=== PATIENT | female | born 1965 | race Caucasian/White ===

== ENCOUNTER 2019-08-17 07:18 | Inpatient (IN) | payer BC ==
[~2019-08-17 07:18] MED LIST: Buffered Lidocaine 1% SYRIN* 1 ML/SYRINGE INTRADERM ONE; Famotidine IV* 10 MG/ML 2 ML (20 mg) IV ONE; Lactated Ringers 1000 ML Bag* 1,000 ML IV SCH; Levalbuterol 0.63MG/3ML NEB* UNIT OF USE INH ONE
[2019-08-17] MEDS ORDERED: Famotidine IV* 10 MG/ML 2 ML (20 mg) ONE (08:07)
[2019-08-17] MEDS ORDERED: Heparin VIAL(*) 5000 UNITS/ML VIAL (FIVE THOUSAND) ONE (08:07)
[2019-08-17] MEDS ORDERED: Levalbuterol 0.63MG/3ML NEB* UNIT OF USE INH ONE (08:07)
[2019-08-17] MEDS ORDERED: Clindamycin 900 MG/D5W BAG(*) 900 MG/50 ML BAG IVPB ONE (08:07)
[2019-08-17] MEDS ORDERED: Ondansetron INJ* 2 MG/ML VIAL ONE ×2 (08:36→12:27)
[2019-08-17] MEDS ORDERED: Ketorolac INJ* 30 MG/ML 1 ML VIAL ONE (08:36)
[2019-08-17] MEDS ORDERED: fentaNYL* 50 MCG/ML 5 ML VIAL (250 MCG VIAL) ONE (08:36)
[2019-08-17] MEDS ORDERED: Propofol* 10 MG/ML 20 ML BTL ONE (08:36)
[2019-08-17] MEDS ORDERED: Rocuronium* 10 MG/ML VIAL ONE (08:36)
[2019-08-17] MEDS ORDERED: Dexamethasone IV* 4 MG/ML 1 ML (4 MG) ONE (08:36)
[2019-08-17] MEDS ORDERED: Midazolam* 1 MG/ML 5 ML VIAL (5 MG) ONE (08:36)
[2019-08-17] MEDS ORDERED: Lidocaine 2% PF * 5 ML VIAL ONE (08:36)
[2019-08-17] MEDS ORDERED: KETAMINE HCL* 50 MG/ML 10 ML VIAL ONE (08:36)
[2019-08-17] MEDS ORDERED: Bupivacaine 0.25% EPI 200,000* 30 ML SDV ONE (10:17)
[2019-08-17] MEDS ORDERED: Phenylephrine 40 MCG/ML SYRINGE ONE (11:22)
[2019-08-17] MEDS ORDERED: Ondansetron INJ* 2 MG/ML VIAL IV PRN (11:31)
[2019-08-17] MEDS ORDERED: Levalbuterol 0.63MG/3ML NEB* UNIT OF USE INH PRN (11:31)
[2019-08-17] MEDS ORDERED: Naloxone* 0.4 MG/ML 1 ML VIAL IV PRN (11:31)
[2019-08-17] MEDS ORDERED: Scopolamine 1.5 mg* PATCH TRANSDERM PRN (11:31)
[2019-08-17] MEDS ORDERED: Neostigmine Methylsulfate* 1 MG/ML 10 ML VIAL (1 mg/ml) ONE (11:50)
[2019-08-17] MEDS ORDERED: Glycopyrrolate IV* 0.2 MG/ML 1 ML VIAL ONE (11:50)
[2019-08-17] MEDS ORDERED: Labetalol IV* 5 MG/ML 20 ML VIAL ONE (11:58)
[2019-08-17] MEDS ORDERED: HYDROcodone/ACET. 7.5/325 LIQ* 15 ML UDC PO PRN (12:13)
[2019-08-17] MEDS ORDERED: HYDROmorphone INJ1* 1 MG/ML SYRINGE IV SLOW PU PRN (12:13)
[2019-08-17] MEDS ORDERED: HYDROmorphone INJ* 0.5 MG/0.5 ML SYRINGE IV SLOW PU PRN (12:13)
[2019-08-17] MEDS ORDERED: Acetaminophen ADULT LIQ* 650 MG/20.3 ML UDC PO PRN (12:13)
--- NOTE | 2019-08-17 12:13 | BRIEFOPN ---
Brief Operative/Procedure Note - Operation Details Pre-Op Diagnosis: morbid obesity Post-Op Diagnosis: same Procedures: laparoscopic sleeve gastrectomy Surgeon(s)/Proceduralists: Deann. Assist: BOO Amaro Anesthesia: GET. Fluids: 2 liters RL Estimated Blood Loss: < 10 ml Findings: as above Specimen(s)/Culture(s) Description: portion of stomach Complications: none
[2019-08-17] MEDS ORDERED: Albuterol 2.5 MG/3 ML NEB.SOL* (0.083%) INH PRN (12:17)
[2019-08-17] MEDS ORDERED: fentaNYL* 50 MCG/ML 2 ML VIAL (100 MCG VIAL) ONE (12:27)
[2019-08-17] MEDS: fentaNYL* 50 MCG/ML 2 ML VIAL (100 MCG VIAL) IV PRN ×2 (12:30→13:05)
[2019-08-17] MEDS ORDERED: Ketorolac INJ* 30 MG/ML 1 ML VIAL IV SCH (13:00)
[2019-08-17] MEDS ORDERED: hydrALAZINE IV* 20 MG/ML VIAL ONE (13:17)
[2019-08-17] MEDS ORDERED: Scopolamine 1.5 mg* PATCH ONE (14:02)
[2019-08-17] MEDS: Lactated Ringers 1000 ML Bag* 1,000 ML IV SCH ×2 (14:22→22:28)
[2019-08-17] MEDS ORDERED: HYDROmorphone INJ* 0.5 MG/0.5 ML SYRINGE ONE (14:50)
[2019-08-17] MEDS: Ketorolac INJ* 30 MG/ML 1 ML VIAL IV SCH (17:41)
[2019-08-17] MEDS: Fluticasone NASAL SPRAY 50MCG* 16 gm SPRAY BTL BOTH NARES SCH (20:53)
[2019-08-17] MEDS: Famotidine IV* 10 MG/ML 2 ML (20 mg) IV SLOW PU SCH (20:53)
[2019-08-17] MEDS: Mometasone/Formoter 200/5 MDI INH SCH (21:08)
[2019-08-17] MEDS: Heparin VIAL(*) 5000 UNITS/ML VIAL (FIVE THOUSAND) SUBCUT SCH (22:12)
--- NOTE | 2019-08-17 22:42 | OP ---
CC: [facility]; BOO Benson * DATE OF OPERATION: 08/17/19 - ROOM #353 DATE OF : 67 SURGEON: Carlos Zacarias MD SAMPLE CHECKER: BOO Morales ANESTHESIOLOGIST: Horace Turner MD ANESTHESIA: General endotracheal. PRE-OP DIAGNOSIS: Clinically severe obesity. POST-OP DIAGNOSIS: Clinically severe obesity. OPERATIVE PROCEDURE: Laparoscopic sleeve gastrectomy. ESTIMATED BLOOD LOSS: Minimal. IV FLUIDS: Crystalloid. SPECIMEN: Portion of stomach. DRAINS: None. COMPLICATIONS: None. COUNTS: Instrument, needle, and sponge count correct. DESCRIPTION OF PROCEDURE: The patient was brought to the operating room and placed on the table supine. Sequential compression devices were placed on both lower extremities. General anesthesia was administered. She was positioned and padded appropriately, prepped and draped in the usual sterile fashion and a time-out was performed. Local anesthetic was infiltrated into the skin and soft tissue prior to making each incision. Entry to the abdomen is through the left upper quadrant accommodating a 5 mm optical trocar. After accessing the peritoneal cavity, carbon dioxide was insufflated to a pressure of 15 mmHg. Under direct visualization, 12 mm bladeless trocars were placed supraumbilically in the midline and right upper quadrant and another 5-mm trocar placed in the left upper quadrant laterally. A Virgilio liver retractor was placed percutaneously in the subxiphoid position and used to elevate the left lobe of the liver. Gastric anatomy appeared normal. No evidence of hiatal hernia. Greater curvature of the stomach was skeletonized with LigaSure starting 6 cm proximal from the pylorus. Mobilization of the stomach was completed, dividing posterior adhesions as well as the short gastric posteriorly near the cardia. After completing the mobilization, a sleeve gastrectomy was performed using the EndoGIA stapler with reinforced purple cartridges. This was done using a 40- Romanian bougie. After completing the gastrectomy, the specimen was retrieved using endoscopic retrieval bag through the right upper quadrant. Hemostasis was assured. The bougie was removed under direct visualization. Virgilio liver retractor was removed. Carbon dioxide and ports were removed. The incisions were closed with 4- 0 Monocryl in subcuticular fashion and DermaFlex was applied. The patient tolerated the procedure well, was extubated and transferred to Recovery stable. [id number]/[facility] #: [id number] MIKAYLA
[2019-08-18] MEDS: Ketorolac INJ* 30 MG/ML 1 ML VIAL IV SCH ×5 (00:49→23:58)
[2019-08-18] MEDS: Ondansetron INJ* 2 MG/ML VIAL IV PRN ×2 (01:11→10:57)
[2019-08-18] MEDS: Lactated Ringers 1000 ML Bag* 1,000 ML IV SCH (05:16)
[2019-08-18] MEDS: Heparin VIAL(*) 5000 UNITS/ML VIAL (FIVE THOUSAND) SUBCUT SCH ×3 (06:18→21:32)
[2019-08-18] MEDS: Famotidine IV* 10 MG/ML 2 ML (20 mg) IV SLOW PU SCH ×2 (08:31→21:31)
[2019-08-18] MEDS: Fluticasone NASAL SPRAY 50MCG* 16 gm SPRAY BTL BOTH NARES SCH ×2 (08:31→21:31)
[2019-08-18] MEDS ORDERED: Cetirizine* 10 MG TAB PO PRN (09:49)
--- NOTE | 2019-08-18 09:52 | PN ---
Progress Note - Progress Note Date of Service: 08/18/19 SOAP: Subjective: Slept poorly as usually works nights. Denies N/V/GERD. Some incisional pain but not severe. Objective: Vital Signs Temp 99.2 F 08/18/19 07:57 Pulse 56 08/18/19 07:57 Resp 17 08/18/19 08:44 BP 157/61 08/18/19 07:57 Pulse Ox 99 08/18/19 08:44 Gen: NAD Abd: incisions c/d/i; no erythema; soft and min tender. Intake & Output 08/17/19 08/18/19 08/18/19 18:59 06:59 18:59 Intake Total 1999 Output Total 509 148 5632 Balance 1100 1565 -978 Weight 244 lb Intake: IV Fluids 1999 LR 1999 1939 322 Oral 0 Output: Urine 147 827 3317 Assessment: POD#1 s/p LSG. Doing well. Plan: Adv diet. PO meds. Ambulate. Likely home in AM.
[2019-08-18] MEDS ORDERED: PROCHLORPERAZINE INJ 5 MG/ML 2 ML VIAL ONE (12:20)
[2019-08-18] MEDS: PROCHLORPERAZINE INJ 5 MG/ML 2 ML VIAL IV PRN ×2 (12:23→17:24)
[2019-08-18] MEDS: Mometasone/Formoter 200/5 MDI INH SCH ×2 (12:28→21:37)
[2019-08-18] MEDS ORDERED: Saline NASAL SPRAY 0.65%* BTL BOTH NARES PRN (12:31)
[2019-08-18] MEDS: D5W 1/2 NS KCl 20 Meq 1000 ML* 1,000 ML IV SCH ×2 (12:33→21:39)
[2019-08-18] MEDS ORDERED: amLODIPine TAB* 5 MG PO ONE (13:30)
[2019-08-18] MEDS ORDERED: hydrALAZINE IV* 20 MG/ML VIAL IV SLOW PU PRN (13:30)
[2019-08-18] MEDS: Oxymetazoline 0.05% NASAL SPR* 15 ML BTL BOTH NARES PRN ×2 (13:52→17:17)
[2019-08-18 14:49] LABS: Hematocrit 38 % (35-47); Hemoglobin 13.3 g/dL (12.0-16.0)
--- NOTE | 2019-08-18 19:35 | CONS ---
CC: EDELMIRA Benson; Dr. Carlos Zacarias * CONSULTATION REPORT: DATE OF ADMISSION: 08/17/19 DATE OF CONSULT: 08/18/19 PRIMARY CARE PROVIDER: EDELMIRA Benson. PHYSICIAN REQUESTING CONSULT: Dr. Carlos Zacarias. REASON FOR CONSULT: Hypertension. CHIEF COMPLAINT: Slight nausea. HISTORY OF PRESENT ILLNESS: Nguyen Velasquez is a 53-year-old female who is status post laparoscopic sleeve gastrectomy performed by Dr. Zacarias on 08/17/19. Postoperatively, the patient was noted to have pressures in the 180s. She also stated that all morning she was intermittently nauseated. She has not had a bowel movement yet, but she has had flatulence. Her postoperative pain is controlled. The patient stated that she has history of high blood pressure when she was , but not recently. PAST MEDICAL HISTORY: 1. History of moderate intermittent asthma. 2. Hypothyroidism. 3. Hypertension, not treated. 4. History of mild obstructive sleep apnea. The patient was advised to sleep on her side. PAST SURGICAL HISTORY: for 3 children. MEDICATIONS: At home include: 1. Acetaminophen on a p.r.n. basis. 2. Breo Ellipta 1 puff daily. 3. Albuterol inhaler on a p.r.n. basis. 4. Xyzal 5 mg daily. 5. Guaifenesin on a p.r.n. basis. 6. Nasonex nasal spray 1 spray to both nostrils b.i.d. 7. Claritin 10 mg daily p.r.n. 8. Levothyroxine 25 mcg daily. 9. Albuterol nebulizer on a p.r.n. basis. ALLERGIES: SULFA causes rash. PENICILLIN causes rash. FAMILY HISTORY: Mother with history of uterine cancer. Sister with breast cancer. High blood pressure in mother and sister. Coronary artery disease in mother and brother. SOCIAL HISTORY: The patient works the nights at a hotel. She is . Denies any alcohol or drug use and never smoked tobacco. Her is her surrogate. PHYSICAL EXAM: Blood pressure of 157/74, heart rate of 78 and regular, respiratory rate 17, oxygen saturation 97% on room air, and temperature 98.1. General: The patient is a very pleasant 53-year-old female with a BMI of 46. The patient is in no acute distress. Alert, awake, and oriented x3. HEENT: Head: Atraumatic, normocephalic. Eyes: Pupils are equal and reactive to light and accommodation. Oropharynx is clear. Mucosa moist. Neck: Supple. No JVD. No bruits bilaterally. Cardiovascular: Regular rate and rhythm. No murmur. Respiratory: Clear to auscultation bilaterally. Abdomen: Soft, minimally diffusely tender with no rebound and no guarding. Bowel sounds are present in all 4 quadrants. Postsurgical incisions have no dehiscence and no drainage and no evidence of infection. Extremities: There is trace bilateral pedal edema. Pulses are +2 bilaterally. No clubbing or cyanosis. Neuro Evaluation: Speech clear. Cranial nerves II through XII are grossly intact. Motor strength is 5/5 bilaterally. DIAGNOSTIC STUDIES/LAB DATA: Laboratory data today included hemoglobin of 13.3 , hematocrit of 38. ASSESSMENT AND PLAN: Postoperative hypertension. At this point, the patient has history of hypertension, but has never been really treated. She stated it usually occurs when she is stressed and also during . At this point, the patient was placed on 5 mg of amlodipine daily. She was also placed on hydralazine on a p.r.n. basis. I suspect that with time when she is not nauseated and her postoperative pain is well controlled, her blood pressure will normalize. For the time being, recommend continuation of amlodipine 5 mg daily. I will check with the patient in the morning tomorrow in regards to blood pressure control further. Thank you very much for allowing our service to see your patient in consultation. We will see the patient tomorrow. TIME SPENT: Approximately 62 minutes were spent on this patient's consultation ; more than half that time was spent [id number] with the patient during the interview and physical exam. [id number]/[facility] #: [id number] MIKAYLA
[2019-08-18] MEDS: Levothyroxine TAB* 25 MCG TAB PO SCH (21:35)
[2019-08-19] MEDS: Ketorolac INJ* 30 MG/ML 1 ML VIAL IV SCH (05:59)
[2019-08-19] MEDS: D5W 1/2 NS KCl 20 Meq 1000 ML* 1,000 ML IV SCH ×2 (05:59→14:55)
[2019-08-19] MEDS: Heparin VIAL(*) 5000 UNITS/ML VIAL (FIVE THOUSAND) SUBCUT SCH ×3 (06:00→23:17)
--- NOTE | 2019-08-19 08:29 | PN ---
Progress Note - Progress Note Date of Service: 08/19/19 SOAP: Subjective: Reports feeling better. No N/V. Has nasal congestion and requesting Mucinex in liquid form that she takes at home. Objective: Vital Signs Temp 99.5 F 08/19/19 07:53 Pulse 68 08/19/19 07:53 Resp 16 08/19/19 07:53 BP 157/82 08/19/19 07:53 Pulse Ox 96 08/19/19 07:53 Gen: NAD ABd: incisions c/d/i; no erythema; min tender. Intake & Output 08/18/19 08/19/19 08/19/19 18:59 06:59 18:59 Intake Total 1284 75 Output Total 3500 2150 Balance -2215 Intake: IV Fluids 1284 LR 1284 Oral 75 Output: Urine 3500 2150 Other: # Bowel Movements 0 Laboratory Results - last 24 hr 08/18/19 14:31 Hgb 13.3 Hct 38 Assessment: POD#2 s/p LSG. Poor po intake. Otherwise well. Plan: Cont diet. Robitussin prn. Likely home tomorrow given poor po intake.
[2019-08-19] MEDS: Famotidine IV* 10 MG/ML 2 ML (20 mg) IV SLOW PU SCH ×2 (08:46→23:18)
[2019-08-19] MEDS: amLODIPine TAB* 5 MG PO SCH (08:46)
[2019-08-19] MEDS: guaiFENesin 100 mg/5 ml LIQ unit dose cup PO PRN ×4 (08:46→23:18)
[2019-08-19] MEDS: Fluticasone NASAL SPRAY 50MCG* 16 gm SPRAY BTL BOTH NARES SCH ×2 (09:46→23:17)
[2019-08-19] MEDS: Mometasone/Formoter 200/5 MDI INH SCH ×2 (09:46→23:16)
[2019-08-19 09:50] LABS: Calcium 9.5 mg/dL (8.6-10.3); EGFR African American 98.2 (>60); EGFR Non-African American 81.1 (>60); Magnesium 2.1 mg/dL (1.9-2.7); Potassium 4.2 mmol/L (3.5-5.0)
--- NOTE | 2019-08-19 16:32 | PN ---
Subjective Date of Service: 08/19/19 Interval History: Pt feels like she has problems drinking enough recommended liquids. Took a shower and was "wiped out", also had a 100 degrees temp this AM. Objective Active Medications: Acetaminophen (Tylenol Adult Liq*) 650 mg PO Q6H PRN PRN Reason: Temp > 101 F Or Mild Pain Hydrocodone Bitart/Acetaminophen (Nortab 7.5/325 Liq*) 15 ml PO Q6H PRN PRN Reason: moderate pain Albuterol (Ventolin 2.5 Mg/3 Ml Neb.Diana*) 2.5 mg INH Q6H PRN PRN Reason: SOB/WHEEZING Albuterol (Ventolin Hfa Inhaler*) 1 puff INH Q4H PRN PRN Reason: SOB/WHEEZING Amlodipine Besylate (Norvasc Tab*) 5 mg PO DAILY [facility] Last Admin: 08/19/19 08:46 Dose: 5 mg Cetirizine HCl (Zyrtec*) 10 mg PO DAILY PRN PRN Reason: Allergy Symptoms Famotidine (Pepcid Iv*) 20 mg IV SLOW PU BID [facility] Last Admin: 08/19/19 08:46 Dose: 20 mg Fluticasone Propionate (Flonase Nasal [place] 50mcg*) 1 spray BOTH NARES BID [facility] Last Admin: 08/19/19 09:46 Dose: 1 spray Guaifenesin (Robitussin 100 Mg/5ml Liq) 10 ml PO Q4H PRN PRN Reason: CONGESTION Last Admin: 08/19/19 14:15 Dose: 10 ml Heparin Sodium (Porcine) (Heparin Vial(*)) 5,000 units SUBCUT Q8HR [facility] Last Admin: 08/19/19 14:15 Dose: 5,000 units Hydralazine HCl (Apresoline Iv*) 5 mg IV SLOW PU Q6H PRN PRN Reason: BLOOD PRESSURE Hydromorphone HCl (Dilaudid Inj*) 0.5 mg IV SLOW PU Q3H PRN PRN Reason: moderately severe pain Hydromorphone HCl (Dilaudid Inj1s*) 1 mg IV SLOW PU Q3H PRN PRN Reason: more severe pain Potassium Chloride/Dextrose (D5w 1/2 Ns Kcl 20 Meq 1000 Ml*) 1,000 mls @ 125 mls/hr IV PER RATE [facility] Last Admin: 12/12/19 14:55 Dose: 125 mls/hr Levothyroxine Sodium (Synthroid Tab*) 25 mcg PO 2130 [facility] Last Admin: 08/18/19 21:35 Dose: 25 mcg Mometasone Furoate/Formoterol Fumar (Dulera 200/5 Mdi*) 2 puff INH BID [facility] Last Admin: 08/19/19 09:46 Dose: 2 puff Ondansetron HCl (Zofran Inj*) 4 mg IV Q6H PRN PRN Reason: NAUSEA/VOMITING Last Admin: 08/18/19 10:57 Dose: 4 mg Oxymetazoline HCl (Afrin 0.05% Nasal [place]*) 2 spray BOTH NARES BID PRN PRN Reason: nasal congestion Last Admin: 08/18/19 17:17 Dose: 2 spray Pharmacy Profile Note (Scopolamine Patch Remove*) 1 note PATCH OFF Q72H ONE Stop: 08/20/19 11:33 Prochlorperazine Edisylate (Compazine Inj*) 10 mg IV Q6H PRN PRN Reason: NAUSEA/VOMITING Last Admin: 08/18/19 17:24 Dose: 10 mg Sodium Chloride (Sodium Chloride 0.65% Nasal [place]*) 1 spray BOTH NARES Q4H PRN PRN Reason: dryness or congestion Vital Signs - 8 hr 08/19/19 08/19/19 11:22 15:29 Temperature 99.1 F 98.8 F Pulse Rate 63 73 Respiratory 12 16 Rate Blood Pressure 152/72 146/70 (mmHg) O2 Sat by Pulse 100 96 Oximetry Oxygen Devices in Use Now: None Appearance: 53 yo F in nAD, AAOx3 Eyes: No Scleral Icterus, PERRLA Ears/Nose/Mouth/Throat: NL Teeth, Lips, Gums, Mucous Membranes Moist Neck: NL Appearance and Movements; NL JVP, Trachea Midline Respiratory: Symmetrical Chest Expansion and Respiratory Effort, Clear to Auscultation Cardiovascular: NL Sounds; No Murmurs; No JVD, RRR Abdominal: - - distended, mild diffuse tenderness, no rebound, no guarding, BS+ , incision sites with no dehiscence, smal serge of erythema surrounding each incision-poss reaction to surgical glue Extremities: - - left arm with edema (IV infiltrated today) Skin: No Nodules or Sclerosis Neurological: Alert and Oriented x 3, NL Muscle Strength and Tone Result Diagrams: 08/18/19 14:31 08/19/19 09:27 Assess/Plan/Problems-Billing Assessment: 53 yo F with h/o obesity, CARLOS ALBERTO s/p laparoscopic gastric sleeve with HTN - Patient Problems (1) HTN (hypertension) Comment: h/o HTN in , but on no meds preop. Suspect essential HTN -cont Norvasc started 08/18/19 (2) DVT prophylaxis Comment: ambulation Status and Disposition: medicine consult, will follow
[2019-08-19] MEDS ORDERED: Ondansetron ODT TAB* 4 MG ONE (17:17)
[2019-08-19] MEDS: Ondansetron ODT TAB* 4 MG SL PRN (17:19)
[2019-08-19] MEDS: Levothyroxine TAB* 25 MCG TAB PO SCH (23:18)
[2019-08-19] MEDS: Albuterol HFA INHALER* 8 gm MDI INH PRN (23:27)
[2019-08-20] MEDS: Ondansetron ODT TAB* 4 MG SL PRN (02:03)
[2019-08-20] MEDS: D5W 1/2 NS KCl 20 Meq 1000 ML* 1,000 ML IV SCH ×2 (03:19→12:05)
[2019-08-20] MEDS: guaiFENesin 100 mg/5 ml LIQ unit dose cup PO PRN ×2 (05:06→12:09)
[2019-08-20] MEDS: Heparin VIAL(*) 5000 UNITS/ML VIAL (FIVE THOUSAND) SUBCUT SCH ×2 (06:15→15:10)
[2019-08-20] MEDS: amLODIPine TAB* 5 MG PO SCH (08:07)
[2019-08-20] MEDS: Famotidine IV* 10 MG/ML 2 ML (20 mg) IV SLOW PU SCH (08:07)
[2019-08-20] MEDS: Ondansetron INJ* 2 MG/ML VIAL IV PRN (08:07)
[2019-08-20] MEDS: Fluticasone NASAL SPRAY 50MCG* 16 gm SPRAY BTL BOTH NARES SCH (08:13)
[2019-08-20] MEDS: Mometasone/Formoter 200/5 MDI INH SCH (08:13)
[2019-08-20] MEDS: Albuterol HFA INHALER* 8 gm MDI INH PRN (08:15)
--- NOTE | 2019-08-20 10:28 | PN ---
Progress Note - Progress Note Date of Service: 08/20/19 Note: S: POD #3. Doing a bit better, though still c/o sig postnasal drip. Not much pain. Only taking 30 cc x2/ hr at this point. Ambulating. Passing flatus. O: Vital Signs - 8 hr 08/20/19 08/20/19 08/20/19 05:12 08:00 09:18 Temperature 98 F 99 F Pulse Rate 62 56 Respiratory 19 18 18 Rate Blood Pressure 153/72 155/60 (mmHg) O2 Sat by Pulse 96 96 96 Oximetry 08/20/19 11:42 Temperature 99.5 F Pulse Rate 69 Respiratory 16 Rate Blood Pressure 156/78 (mmHg) O2 Sat by Pulse 98 Oximetry Intake and Output Last 24 Hours 08/18/19 08/19/19 08/20/19 08/21/19 06:59 06:59 06:59 06:59 Intake Total 3940 1359 2000 Output Total 1275 5650 1999 500 Balance 2665 -4291 0 -500 Weight 244 lb Intake: IV Fluids 3940 1284 1970 D5 1/2 NS 20KCL 1970 LR 3940 1284 Oral 0 75 30 Output: Urine 1275 5650 1999 500 Other: Estimated Void Medium # Bowel Movements 0 0 # Voids 1 Gen: appears comfortable, NAD Heart: reg Lungs: clear Abd: lap sites ok; +BS; soft; no sig tenderness to palp A: s/p lap sleeve gastrectomy, improving, but still not up to goal for po liquids P: recheck later for poss discharge home
[2019-08-20] MEDS ORDERED: Scopolamine PATCH Remove* 1 NOTE MISC PATCH OFF ONE (11:32)
[2019-08-20 11:43] VITALS: BP 156/78
--- NOTE | 2019-08-20 20:52 | DS ---
CC: EDELMIRA Benson * DISCHARGE SUMMARY: DATE OF ADMISSION: 08/17/19 DATE OF DISCHARGE: 08/20/19 ATTENDING SURGEON: Dr. Carlos Zacarias * (BOO Morales dictating). HOSPITAL COURSE: Please refer to admission history and physical and operative note for details. The patient underwent laparoscopic sleeve gastrectomy on 06/[address] Zacarias for morbid obesity. Her postoperative course was remarkable for uncontrolled hypertension (she was seen in consult by the hospitalist service for management and was initiated on amlodipine 5 mg once daily. A prescription for this was e-sent to her outpatient pharmacy to be continued upon discharge). She also had significant nasal congestion and postnasal drip which contributed to some degree of nausea. Her oral intake was inadequate until the afternoon of the day of discharge. At that time, she was deemed ready for discharge. Instructions were reviewed with her regarding diet , wound care, and activity. She has a follow up with Dr. Zacarias at the [facility]. She will continue her usual home meds. She is discharged to home in good condition. BOO MORALES [id number]/[facility] #: [id number] MTDDenae
== END 2019-08-20 16:30 | disposition home or self-care (01) | DRG 403 ==
LOC: AA 07:18 → SSU 12:13
PROVIDERS: ADMIT Surgery; ATTEND Surgery
PROC: 0DB64Z3 Excision of Stomach, Percutaneous Endoscopic Approach, Vertical (ICD-10-PCS; principal; 2019-08-17 09:15)
DX: E66.01 Morbid (severe) obesity due to excess calories (principal); I10 Essential (primary) hypertension; J45.20 Mild intermittent asthma, uncomplicated; F32.9 Major depressive disorder, single episode, unspecified; E03.9 Hypothyroidism, unspecified; G47.33 Obstructive sleep apnea (adult) (pediatric); I97.3 Postprocedural hypertension; E55.9 Vitamin D deficiency, unspecified; J30.1 Allergic rhinitis due to pollen; Z68.42 Body mass index [BMI] 45.0-49.9, adult; Z79.1 Long term (current) use of non-steroidal anti-inflammatories (NSAID); Z79.52 Long term (current) use of systemic steroids; Z79.899 Other long term (current) drug therapy; Z88.0 Allergy status to penicillin; Z88.2 Allergy status to sulfonamides; Z80.49 Family history of malignant neoplasm of other genital organs; Z80.3 Family history of malignant neoplasm of breast; Z82.49 Family history of ischemic heart disease and other diseases of the circulatory system; Z83.49 Family history of other endocrine, nutritional and metabolic diseases; Z83.3 Family history of diabetes mellitus
CPT/HCPCS: 36415; 43775; 80048; 83735; 85014; 85018; 88307; A9270-GY; J0360; J0780; J1100; J1170; J1644; J1885; J2250; J2405; J2704; J2710; J3010

== ENCOUNTER 2019-09-11 07:37 | Emergency (ER) | payer BC ==
[2019-09-11 08:10] VITALS: BP 139/66
--- NOTE | 2019-09-11 08:16 | UC ---
Skin Complaint HPI - HPI Summary HPI Summary: 53-year-old female who had bariatric surgery on August 17, 2019. She had a recheck on August 27 and stated everything was fine. Since then there are 2 areas of concern where she had a surgical incision which have had some pus drainage. She has been applying Neosporin to those areas. She denies any fever or chills. When reviewing her allergies she states that her mother is allergic penicillin but she has never had it however has said that as an allergy because of her mother's allergy. - History of Current Complaint Chief Complaint: UCSkin Time Seen by Provider: 09/11/19 08:02 Stated Complaint: SKIN STOMACH Hx Obtained From: Patient Hx Last Menstrual Period: 2007 ?: No Onset/Duration: Gradual Onset Skin Exposure Onset/Duration: Days Ago Timing: Constant Onset Severity: Mild Current Severity: Mild Pain Intensity: 0 Location: Other - The patient has 5 small incisional sites and the 2 areas of concern are in the right upper quadrant and the left mid abdomen. Character: Redness Aggravating Factor(s): Nothing Alleviating Factor(s): Nothing Associated Signs & Symptoms: Positive: Drainage - Patient had pus drainage from both of those areas. The other 3 incisions have healed without difficulty. Related History: Other: - Recent bariatric surgery. - Allergy/Home Medications Allergies/Adverse Reactions: Allergies Allergy/AdvReac Type Severity Reaction Status Date / Time Sulfa (Sulfonamide Allergy Severe Rash, Verified 09/11/19 07:55 Antibiotics) severe redness Penicillins Allergy Unknown Verified 09/11/19 07:55 Reaction Details animal dander Allergy Severe Eyes Uncoded 09/11/19 07:55 Itchy/Swollen/Red/Watery fescue grass, vivienne hay, Allergy Severe Difficulty Uncoded 09/11/19 07:55 lilies Breathing perfumes Allergy Severe respiratory Uncoded 09/11/19 07:55 issues PMH/Surg Hx/FS Hx/Imm Hx Previously Healthy: Yes Endocrine History: Thyroid Disease Cardiovascular History: Hypertension Respiratory History: Asthma - Surgical History Surgical History: Yes Surgery Procedure, Year, and Place: x 3, bariatric sleeve 08/17/19 - Family History Known Family History: Positive: Non-Contributory - Social History Lives: With Family Alcohol Use: None Substance Use Type: None Smoking Status (MU): Never Smoked Tobacco - Immunization History Most Recent Influenza Vaccination: 2019 Most Recent Pneumonia Vaccination: none Review of Systems All Other Systems Reviewed And Are Negative: Yes Skin: Positive: Other - 5 surgical incisions, 3 of which are healed and 2 which are slightly open with yellow drainage. Is Patient Immunocompromised?: No Physical Exam Triage Information Reviewed: Yes Appearance: Well-Appearing, No Pain Distress, Well-Nourished Vital Signs: Initial Vital Signs Temp 97.5 F 09/11/19 08:01 Pulse 84 09/11/19 08:01 Resp 14 09/11/19 08:01 BP 139/66 09/11/19 08:01 Pulse Ox 98 09/11/19 08:01 Vital Signs Reviewed: Yes Eyes: Positive: Conjunctiva Clear Abdomen Description: Positive: Soft Skin: Positive: Other - The incision in the right upper quadrant to the right of the umbilicus and in the left mid abdomen are slightly open with some yellow drainage at the site but none can be expressed. The incision on the right has some erythema, approximately 0.75 cm in diameter around the incision, with some slight hardness on palpation. The other 3 incisions between those 2 are healed. Course/Dx - Course Course Of Treatment: Patient is comfortable here. I did advise her to stop using the Neosporin because this may have caused a skin reaction. She can continue to apply Band- Aids. She has a follow-up with the dietitian on Friday and she stated a doctor would be there so they can recheck the surgical wounds. - Diagnoses Provider Diagnosis: Wound infection after surgery Discharge ED - Sign-Out/Discharge Documenting (check all that apply): Patient Departure All imaging exams completed and their final reports reviewed: No Studies - Discharge Plan Condition: Good Disposition: HOME Prescriptions: Cephalexin CAP* [Keflex 500 CAP*] 500 mg PO TID 10 Days #30 cap Patient Education Materials: Wound Infection (DC) Referrals: Luis Enrique Piper PA [Primary Care Provider] - Additional Instructions: Stop using Neosporin. Follow up with your provider on Friday as scheduled for a recheck. - Billing Disposition and Condition Condition: GOOD Disposition: Home - Attestation Statements Provider Attestation: Per institutional requirements, I have reviewed the chart, however, I was not consulted specifically or made aware of this patient by the midlevel provider. I did not personally evaluate, interact with , or disposition this patient.
== END 2019-09-11 08:34 | disposition home or self-care (01) ==
LOC: UCCORT 07:37
DX: T81.49XA Infection following a procedure, other surgical site, initial encounter (principal); L08.89 Other specified local infections of the skin and subcutaneous tissue; I10 Essential (primary) hypertension; J45.909 Unspecified asthma, uncomplicated; Z88.0 Allergy status to penicillin; Z88.2 Allergy status to sulfonamides; Z91.09 Other allergy status, other than to drugs and biological substances; Y83.9 Surgical procedure, unspecified as the cause of abnormal reaction of the patient, or of later complication, without mention of misadventure at the time of the procedure; Y92.9 Unspecified place or not applicable
CPT/HCPCS: 99212; G0463